=== PATIENT | female | born 1995 | race Asian ===

== ENCOUNTER → 2017-12-14 | Outpatient (CLI) | payer OTHER ==
--- NOTE | 2017-12-15 09:18 | Diagnostic Imaging Report ---
Indication: Abdominal pain Technique: Continuous helical transaxial imaging of the abdomen and pelvis was obtained from the lung bases to the pubic symphysis during intravenous contrast administration. Coronal 2-D reformats were also obtained. Study obtained in a Siemens sensation [address] Automatic Exposure Control was utilized. Total Dose length Product (DLP): 450.[address] Dose Index Volume (CTDIvol): 9.07 mGy Comparison: None Findings: The lung bases are clear. There is some heterogeneity of enhancement of the right kidney which is mild but nevertheless abnormal. One particular area in the upper pole of the right kidney anteriorly noted. Findings suggest pyelonephritis/bacterial nephritis. Please correlate clinically. There is no abscess. There is no evidence of obstruction or hydronephrosis. The urinary bladder is unremarkable. A small amount of free fluid noted in the pelvis which may be physiologic. No evidence of bowel obstruction. The appendix is partially seen and appears normal. 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 IMPRESSION: Suspected pyelonephritis in the right kidney. Please correlate clinically. 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 Partial visualization of the appendix which appears normal. Mild free fluid in the pelvis, may be physiologic. [facility] has communicated the preliminary results to the Emergency Department. Their findings are largely concordant with this report. The CT scanner at [facility] is accredited by the [employer] and the scans are performed using dose optimization techniques as appropriate to a performed exam including Automatic Exposure control.
== END | disposition home or self-care (01) ==
LOC: RAD 19:54
DX: R10.9 Unspecified abdominal pain (principal)
CPT/HCPCS: 74177; Q9967